=== PATIENT | female | born 1980 | race Caucasian/White ===

== ENCOUNTER → 2022-12-28 | Outpatient (CLI) | payer OTHER ==
[~2022-12-28] MED LIST: LIDOCAINE 1% MDV 20ML VIAL As Ordered ONE
[2022-12-28 12:09] VITALS: TEMP 98.7
[2022-12-28 13:03] VITALS: BP 125/85; O2SAT 99
== END ==
LOC: M IRPRO 11:55
PROVIDERS: ATTEND Otolaryngology
DX: R22.1 Localized swelling, mass and lump, neck (principal)

== ENCOUNTER → 2023-01-13 | Outpatient (CLI) | payer OTHER ==
[2023-01-13 16:11] LABS: FREE T4 0.87 NG/DL (0.89-1.76); THYROID STIMULATING HORMONE 1.197 uIU/ML (0.55-4.78)
[2023-01-13 16:13] LABS: THYROID PEROXIDASE ANTIBODY < 28.0 U/ML (<60.0)
[2023-01-14 10:44] LABS: THYROGLOBULIN ANTIBODY < 15.0 U/ML (<60.0)
== END ==
LOC: M LAB 15:13
PROVIDERS: ATTEND Otolaryngology
DX: E06.9 Thyroiditis, unspecified (principal)

== ENCOUNTER → 2023-03-16 | Outpatient (CLI) | payer OTHER ==
[2023-03-16 09:15] VITALS: TEMP 97.7
[2023-03-16 10:35] VITALS: BP 109/64; O2SAT 99
== END ==
LOC: M IRPRO 09:04
PROVIDERS: ATTEND Otolaryngology
DX: D44.0 Neoplasm of uncertain behavior of thyroid gland (principal)